=== PATIENT | male | born 1985 | race Caucasian/White ===

== ENCOUNTER 2016-03-26 11:15 | Emergency (ER) | payer SELFPAY ==
[~2016-03-26] VITALS: Ht 188 cm; Wt 70.7 kg
[~2016-03-26 11:15] MED LIST: BACL10TA PO; DICL75 PO; METH40TA9 PO; METH750T2 PO
[2016-03-26 11:20] VITALS: BP 125/70; PULSE 91; RESP 18; TEMP 98.5; O2SAT 97
[2016-03-26] MEDS ORDERED: METH40TA PO (11:30)
[2016-03-26] MEDS ORDERED: BACT800T5 PO (11:57)
--- NOTE | 2016-03-26 11:57 | PD ---
HPI Chief Complaint: Cold / Flu Symptoms Time Seen by Provider: 11:52 Travel History International Travel<30 days: No Contact w/Intl Traveler<30days: No Traveled to known affect area: No History of Present Illness HPI Patient is a 30-year-old male who presents to the emergency department for evaluation of nasal congestion, headache, pressure. Patient states his symptoms have been ongoing for approximately 10 days, he's been utilizing take well with no significant relief of his symptoms. Patient states his was sick and recovered quickly however his symptoms continue to linger. He is concerned because he has a new baby coming on Wednesday. He denies any fevers but states she's been fatigued. PFSH Past Medical History Cancer: Yes (MELANOMA x2 NECK AND SHOULDER REMOVERED) Cardiovascular Problems: No Chemotherapy: No Diminished Hearing: No Endocrine: No Gastrointestinal Disorders: No Genitourinary: No Immune Disorder: No Implanted Vascular Access Dvce: Yes Musculoskeletal: No Neurologic: No Psychiatric: No Reproductive: No Respiratory: No Immunizations Current: Yes Radiation Therapy: No Past Surgical History Abdominal Surgery: Yes (APPENDECTOMY) Appendectomy: Yes Body Medical Devices: RODS AND OINS IN LEFT LEG Cardiac Surgery: No Ear Surgery: No Endocrine Surgery: Yes (MELANOMA x2 ON NECK AND SHOULDER at age of 15) Eye Surgery: No Genitourinary Surgery: No Gynecologic Surgery: No Neurologic Surgery: No Oral Surgery: No Thoracic Surgery: No Other Surgery: Yes (left femur fracture repair , skin cancer removed) Social History Alcohol Use: No Tobacco Use: Yes (1ppd) Substance Use: No (HX OF) Allergies-Medications (Allergen,Severity, Reaction): Coded Allergies: Penicillin (Verified Allergy, Severe, 03/26/16) *MDRO Multi-Drug Resistant Organism (Verified Adverse Reaction, Mild, 03/26) MRSA finger wound 08/2014 & arm wound 12/2014 Reported Meds & Prescriptions Reported Meds & Active Scripts Active Reported Methadone (Methadone HCl) 40 Mg Tab 140 Mg PO DAILY Review of Systems Except as stated in HPI: all other systems reviewed are Neg General / Constitutional: Positive: Other (fatigue), No: Fever, Chills HENT: Positive: Headaches, Congestion, No: Lightheadedness, Neck Stiffness, Neck Pain, Earache Cardiovascular: No: Chest Pain or Discomfort Respiratory: Positive: Cough, No: Shortness of Breath, Wheezing Gastrointestinal: No: Nausea, Vomiting, Diarrhea, Abdominal Pain Musculoskeletal: No: Myalgias Physical Exam Narrative GENERAL: Well-nourished, well-developed patient. SKIN: Warm and dry. HEAD: Normocephalic. Tenderness to palpation over ethmoid and maxillary sinuses EYES: No scleral icterus. No injection or drainage. NECK: Supple, trachea midline. No JVD or lymphadenopathy. ENT: Mucosa pink and moist. No exudates. No uvular edema. No uvular, palatal, or tonsillar deviation. Airway patent. Nasal turbinates appear normal without nasal blood, purulent drainage or septal hematoma. Posterior pharynx with cobblestoning appearance. CARDIOVASCULAR: Regular rate and rhythm without murmurs, gallops, or rubs. RESPIRATORY: Breath sounds equal bilaterally. No accessory muscle use. GASTROINTESTINAL: Abdomen soft, non-tender, nondistended. MUSCULOSKELETAL: No cyanosis, or edema. BACK: Nontender without obvious deformity. No CVA tenderness. Data Data Last Documented VS Vital Signs Date Time Temp Pulse Resp B/P Pulse Ox O2 Delivery O2 Flow Rate FiO2 03/26/16 11:20 98.5 91 18 125/70 97 [facility] Medical Decision Making Medical Screen Exam Complete: Yes Emergency Medical Condition: Yes Interpretation(s) Vital Signs Date Time Temp Pulse Resp B/P Pulse Ox O2 Delivery O2 Flow Rate FiO2 03/26/16 11:20 98.5 91 18 125/70 97 Differential Diagnosis Viral URI versus allergic rhinitis versus bronchitis versus sinusitis versus other Narrative Course Patient is a 30-year-old male who presented to emergency for evaluation of congestion, sinus pressure, headache. Patient symptoms have been ongoing for approximately 10 days. Patient's vital signs are stable, he is afebrile. Due to the duration of his symptoms patient will be provided with a prescription for an antibiotic. Patient was advised that he should obtain [id number] nasal decongestant as well. Patient was encouraged to complete full course of antibiotics as directed. He was encouraged to follow up with primary care provider return to emergency department for any new or worsening symptoms. Patient verbalized understanding of these instructions. Patient is stable for discharge. Diagnosis Primary Impression: Acute sinusitis Qualified Code: J01.90 - Acute sinusitis, recurrence not specified, unspecified location Referrals: [facility] Primary Care Physician Patient Instructions: General Instructions, Sinusitis (ED) Additional Instructions: Obtain [id number] nasal decongestant and use as directed Complete full course of antibiotics as prescribed Return to emergency department for any new or worsening symptoms Follow-up with your primary care provider Med/Other Pt SpecificInfo: Prescription(s) given Scripts Sulfamethoxazole-Trimethoprim (Bactrim DS)800-160 Mg Tab1 Tab PO BID #20 TAB Ref 0 Prov:Juliane Villafuerte 03/26/16 Disposition: 01 DISCHARGE HOME Condition: Stable Juliane Villafuerte Mar 26, 2016 11:57
== END 2016-03-26 12:03 | disposition home or self-care (01) ==
LOC: PHEFT 11:15
DX: J01.90 Acute sinusitis, unspecified (principal); R51 Headache; F17.210 Nicotine dependence, cigarettes, uncomplicated
CPT/HCPCS: 99283

== ENCOUNTER 2016-08-05 08:43 | Emergency (ER) | payer MEDICAID ==
[~2016-08-05] VITALS: Ht 188 cm; Wt 66.4 kg
[~2016-08-05 08:43] MED LIST changes: -BACL10TA PO; +BACT800T5 PO; -DICL75 PO; +METH40TA PO; -METH40TA9 PO; -METH750T2 PO
[2016-08-05 08:52] VITALS: BP 102/77; PULSE 75; RESP 16; TEMP 98.2; O2SAT 98
[2016-08-05] MEDS ORDERED: XANA1TAB2 PO (09:51)
--- NOTE | 2016-08-05 10:13 | PD ---
HPI Chief Complaint: Headache Time Seen by Provider: 09:57 Travel History International Travel<30 days: No Contact w/Intl Traveler<30days: No Traveled to known affect area: No History of Present Illness HPI This is a 31-year-old male who presents to the emergency department with severe pain involving his right face anterior to the ear, intermittent lasting for seconds to 2-3 minutes and then subsiding. He says when the pain comes he feels like he wants to . He describes it as a sharp stabbing pain. Currently he has no symptoms. He denies any fevers or chills. He does have some poor dentition both in the upper and lower teeth. He has no insurance. He 's never had headaches like this before. PFSH Past Medical History Cancer: Yes (MELANOMA x2 NECK AND SHOULDER REMOVERED) Cardiovascular Problems: No Chemotherapy: No Diminished Hearing: No Endocrine: No Gastrointestinal Disorders: No Genitourinary: No Immune Disorder: No Implanted Vascular Access Dvce: Yes Musculoskeletal: No Neurologic: No Psychiatric: No Reproductive: No Respiratory: No Immunizations Current: Yes Radiation Therapy: No Past Surgical History Abdominal Surgery: Yes (APPENDECTOMY) Appendectomy: Yes Body Medical Devices: RODS AND OINS IN LEFT LEG Cardiac Surgery: No Ear Surgery: No Endocrine Surgery: Yes (MELANOMA x2 ON NECK AND SHOULDER at age of 15) Eye Surgery: No Genitourinary Surgery: No Gynecologic Surgery: No Neurologic Surgery: No Oral Surgery: No Thoracic Surgery: No Other Surgery: Yes (left femur fracture repair , skin cancer removed) Social History Alcohol Use: No Tobacco Use: Yes (1ppd) Substance Use: No (HX OF) Allergies-Medications (Allergen,Severity, Reaction): Coded Allergies: Penicillin (Verified Allergy, Severe, 08/05/16) *MDRO Multi-Drug Resistant Organism (Verified Adverse Reaction, Mild, 03/26) 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 HEAD: Atraumatic. Normocephalic. EYES: Pupils equal and round. No injection or drainage. ENT: Old fractured dentition of 3 posterior maxillary molars on the right side with fractured mandibular molars on the right as well. No focal tenderness or sensitivity on exam. NECK: Trachea midline. CARDIOVASCULAR: Regular rate and rhythm. No murmur appreciated. RESPIRATORY: Clear to auscultation. Breath sounds equal bilaterally. GASTROINTESTINAL: Abdomen soft, non-tender, nondistended. MUSCULOSKELETAL: No obvious deformities. NEUROLOGICAL: Awake and alert. No obvious cranial nerve deficits. Moving all extremities. No dysarthria or aphasia. PSYCHIATRIC: Appropriate mood and affect; insight and judgment normal. Data Data Last Documented VS Vital Signs Date Time Temp Pulse Resp B/P Pulse Ox O2 Delivery O2 Flow Rate FiO2 08/05/16 08:52 98.2 75 16 102/[address] Brain W/O Iv Contrast(Rout) (08/05/16 ) [facility] Medical Decision Making Medical Screen Exam Complete: Yes Emergency Medical Condition: Yes Interpretation(s) Afebrile, no tachycardia, normotensive CT head: Mild ethmoid sinus disease Differential Diagnosis Intracranial hemorrhage, dental abscess, sinusitis, trigeminal neuralgia Narrative Course This is a 31-year-old male who presents to the emergency department with intermittent sharp headaches in the right side of his face. His clinical description of symptoms is consistent with trigeminal neuralgia. He does have some poor dentition along the upper maxillary molars however his pain is intermittent and subsides completely making dental etiology less likely. CT of the head was obtained which was reassuring and the patient has a normal neurologic exam. He has no insurance. I had a long conversation with him regarding options for treatment. I think it's reasonable to put him on an antibiotic for possible dental pain however I also think he should start carbamazepine and see if his symptoms improved. He was given a referral to the [facility] for follow-up. Diagnosis Primary Impression: Headache Qualified Code: R51 - Acute nonintractable headache, unspecified headache type Referrals: [facility] Patient Instructions: General Instructions Additional Instructions: If you develop severe worsening headache, persistent vomiting, numbness, weakness, difficulty walking or difficulty talking return to the emergency department immediately. You should follow up with a primary care physician as soon as possible. Med/Other Pt SpecificInfo: Prescription(s) given Scripts Clindamycin 300 Mg [id number] Mg PO TID #21 CAP Ref 0 Prov:China Reynolds MD 08/05/16 Carbamazepine 100 Mg [id number] Mg CHEW BID #28 TAB Ref 0 Prov:China Reynolds MD 08/05/16 Disposition: 01 DISCHARGE HOME Condition: Stable China Reynolds MD August 05, 2016 10:13
--- NOTE | 2016-08-05 11:54 | RADHPO ---
EXAM DATE/TIME: 08/05/2016 10:37 [facility] COMPARISON: No previous studies available for comparison. INDICATIONS : Cephalgia with nausea. RADIATION DOSE: 64.74 CTDIvol (mGy) MEDICAL HISTORY : None SURGICAL HISTORY : Appendectomy. ENCOUNTER: Initial ACUITY: 2 days PAIN SCALE: 5/10 LOCATION: Right frontal TECHNIQUE: Multiple contiguous axial images were obtained of the head. Using automated exposure control and adj ustment of the mA and/or kV according to patient size, radiation dose was kept as low as reasonably a chievable to obtain optimal diagnostic quality images. FINDINGS: CEREBRUM: The ventricles are normal for age. No evidence of midline shift, mass lesion, hemorrhage or acute in farction. No extra-axial fluid collections are seen. POSTERIOR FOSSA: The cerebellum and brainstem are intact. The 4th ventricle is midline. The cerebellopontine angle i s unremarkable. EXTRACRANIAL: Moderate severity partial opacification of the ethmoid sinuses. SKULL: The calvaria is intact. No evidence of skull fracture. CONCLUSION: Moderate ethmoid sinus disease. No acute intracranial findings. Inder Ly MD on August 05, 2016 at 11:49 Board Certified Radiologist. This report was verified electronically.
[2016-08-05] MEDS ORDERED: CLIN1CAP6 PO (12:04)
[2016-08-05] MEDS ORDERED: CARB100C CHEW (12:04)
== END 2016-08-05 12:17 | disposition home or self-care (01) ==
LOC: PHED 08:43 → PHEFT 12:17
DX: R51 Headache (principal); F17.200 Nicotine dependence, unspecified, uncomplicated; Z88.0 Allergy status to penicillin; Z79.899 Other long term (current) drug therapy; Z85.820 Personal history of malignant melanoma of skin
CPT/HCPCS: 70450; 99284

== ENCOUNTER 2017-03-16 20:20 | Emergency (ER) | payer SELFPAY ==
[~2017-03-16] VITALS: Ht 188 cm; Wt 70.4 kg
[~2017-03-16 20:20] MED LIST changes: -BACT800T5 PO; +CARB100C CHEW; +CLIN300C5 PO; +XANA1TAB2 PO
[2017-03-16 20:41] VITALS: BP 129/60; PULSE 78; RESP 16; TEMP 98.8; O2SAT 99
[2017-03-16] MEDS ORDERED: ALPR1TAB3 PO (20:46)
[2017-03-16 21:26] VITALS: PULSE 69; RESP 18; O2SAT 98
--- NOTE | 2017-03-16 21:27 | PD ---
HPI Chief Complaint: Respiratory Symptoms Time Seen by Provider: 21:14 Travel History International Travel<30 days: No Contact w/Intl Traveler<30days: No Traveled to known affect area: No History of Present Illness HPI 31-year-old male complains of shortness of breath and chest pain. Patient states that the symptoms started 3 days ago. Patient states that he was doing heavy lifting prior to that. Patient states that the pain is pressure pain across the chest. Patient denies any pain radiation. Patient denies palpitation nausea diaphoresis. Patient states that he has shortness of breath since 3 days ago. Patient denies any coughing congestion fever chills. Patient has history of cardiomyopathy. Patient denies any history of hypertension, diabetes, hyperlipidemia. Patient is a smoker. Patient denies any illicit drug abuse. PFSH Past Medical History Anxiety: Yes Cancer: Yes (MELANOMA x2 NECK AND SHOULDER REMOVERED) Cardiovascular Problems: No Chemotherapy: No Diminished Hearing: No Endocrine: No Gastrointestinal Disorders: No Genitourinary: No Immune Disorder: No Implanted Vascular Access Dvce: Yes Musculoskeletal: No Neurologic: No Psychiatric: No Reproductive: No Respiratory: No Immunizations Current: Yes Radiation Therapy: No Influenza Vaccination: No Past Surgical History Abdominal Surgery: Yes (APPENDECTOMY) Appendectomy: Yes Body Medical Devices: RODS AND OINS IN LEFT LEG Cardiac Surgery: No Ear Surgery: No Endocrine Surgery: Yes (MELANOMA x2 ON NECK AND SHOULDER at age of 15) Eye Surgery: No Genitourinary Surgery: No Gynecologic Surgery: No Neurologic Surgery: No Oral Surgery: No Thoracic Surgery: No Other Surgery: Yes (left femur fracture repair , skin cancer removed) Social History Alcohol Use: No Tobacco Use: Yes (1ppd) Substance Use: No (HX OF) Allergies-Medications (Allergen,Severity, Reaction): Coded Allergies: penicillin G (Unverified Allergy, Severe, 03/16/17) *MDRO Multi-Drug Resistant Organism (Verified Adverse Reaction, Mild, ) MRSA finger wound 08/2014 & arm wound 12/2014 Reported Meds & Prescriptions Reported Meds & Active Scripts Active Carbamazepine 100 Mg Chew 100 Mg CHEW BID Reported Alprazolam 1 Mg Tab 1 Mg PO Q8H Review of Systems General / Constitutional: No: Fever Eyes: No: Visual changes HENT: No: Headaches Cardiovascular: Positive: Chest Pain or Discomfort Respiratory: Positive: Shortness of Breath Gastrointestinal: No: Abdominal Pain Genitourinary: No: Dysuria Musculoskeletal: No: Pain Skin: No Rash Neurologic: No: Weakness Psychiatric: No: Depression Endocrine: No: Polydipsia Hematologic/Lymphatic: No: Easy Bruising Physical Exam Narrative GENERAL: Well-nourished, well-developed patient. SKIN: Focused skin assessment warm/dry. HEAD: Normocephalic. EYES: No scleral icterus. No injection or drainage. NECK: Supple, trachea midline. No JVD or lymphadenopathy. CARDIOVASCULAR: Regular rate and rhythm without murmurs, gallops, or rubs. RESPIRATORY: Breath sounds equal bilaterally. No accessory muscle use. GASTROINTESTINAL: Abdomen soft, non-tender, nondistended. MUSCULOSKELETAL: No cyanosis, or edema. BACK: Nontender without obvious deformity. No CVA tenderness. Neurologic exam normal. Data Data Last Documented VS Vital Signs Date Time Temp Pulse Resp B/P (MAP) Pulse Ox O2 Delivery O2 Flow Rate FiO2 03/16/17 21:26 69 18 98 Room Air 03/16/17 20:41 98.8 129/60 (83) Orders Orders Electrocardiogram (03/16/17 21:21) Chest, Single Ap (03/16/17 21:21) MDM Medical Decision Making Medical Screen Exam Complete: Yes Emergency Medical Condition: Yes Interpretation(s) 21:43 PM. EKG shows sinus rhythm incomplete right bundle-branch block. 21:50 PM. Chest x-ray shows no acute process. Differential Diagnosis Differential diagnosis including musculoskeletal, angina, [place], PE, pneumothorax. Narrative Course 31-year-old male complains chest pain and shortness of breath. The symptoms started 3 days ago after heavy lifting. Diagnosis Primary Impression: Atypical chest pain Patient Instructions: General Instructions Additional Instructions: Take medication as needed for pain. Follow-up with personal physician. Return if increasing chest pain shortness of breath. Med/Other Pt SpecificInfo: Prescription(s) given Scripts Methocarbamol (Robaxin) 750 Mg Tab 750 MG PO QID for Muscle Spasm, #40 TAB 0 Refills Prov: Octavio Branch MD 03/16/17 Ibuprofen (Ibuprofen) 600 Mg Tab 600 MG PO TID for Pain, #30 TAB 0 Refills Prov: Octavio Branch MD 03/16/17 Disposition: 01 DISCHARGE HOME Condition: Stable Octavio Branch MD Mar 16, 2017 21:26
--- NOTE | 2017-03-16 21:48 | RADRPT ---
EXAM DATE/TIME: 03/16/2017 21:35 [facility] COMPARISON: No previous studies available for comparison. INDICATIONS : Short of breath for 4 days. MEDICAL HISTORY : None. SURGICAL HISTORY : None. ENCOUNTER: Initial ACUITY: 4 - 6 days PAIN SCORE: 0/10 LOCATION: Bilateral chest FINDINGS: A single view of the chest demonstrates the lungs to be symmetrically aerated without evidence of mas s, infiltrate or effusion. The cardiomediastinal contours are unremarkable. Osseous structures are intact. CONCLUSION: No evidence of acute cardiopulmonary disease. Fer Ramos MD on March 16, 2017 at 21:46 Board Certified Radiologist. This report was verified electronically.
[2017-03-16] MEDS ORDERED: IBUP-232 PO (21:52)
[2017-03-16] MEDS ORDERED: ROBA750T PO (21:52)
--- NOTE | 2017-03-17 21:39 | EKG ---
Date Performed: 03/16/2017 Time Performed: 21:39:42 PTAGE: 31 years EKG: Sinus rhythm POSSIBLE LEFT ATRIAL ENLARGEMENT INCOMPLETE RIGHT BUNDLE BRANCH BLOCK BORDERLINE ECG NO PREVIOUS TRACING DOCTOR: Timur Garcia Interpretating Date/Time 03/17/2017 21:38:32
== END 2017-03-16 22:05 | disposition home or self-care (01) ==
LOC: PHED 20:20
DX: R07.89 Other chest pain (principal); R06.02 Shortness of breath; R94.31 Abnormal electrocardiogram [ECG] [EKG]; F41.9 Anxiety disorder, unspecified; F17.200 Nicotine dependence, unspecified, uncomplicated; Z86.79 Personal history of other diseases of the circulatory system; Z85.828 Personal history of other malignant neoplasm of skin; X50.0XXA Overexertion from strenuous movement or load, initial encounter
CPT/HCPCS: 71045; 93005; 99284